=== PATIENT | female | born 1995 | race Caucasian/White ===

== ENCOUNTER → 2023-06-26 | Emergency (ER) | payer SELFPAY ==
[~2023-06-26] MED LIST: ACETAMINOPHEN 500 MG TAB ONE; FAMOTIDINE 20 MG/2 ML VIAL IV ONE; GUAIFENESIN/DM 5 ML UCUP ONE; KETOROLAC 30 MG/ML INJ ONE; NA CHLORIDE 0.9% 1,000 ML ONE; ONDANSETRON 4 MG/2 ML VIAL ONE
--- OUTSIDE RECORDS SUMMARY | 2023-06-26 06:41 | XMS REPORT | Continuity of Care Document ---
Author Name Unknown Address [address] [place] [address] [address] [place] [address] [facility] thconnect Address [address] [facility] [address] [place] [address] Care Team Providers Care Installation Specialist Name Role Phone Unavailable Unavailable Unavailable Payers Payer Name Policy Type Policy Number Effective Date Expirati on Date Source Allergies, Adverse Reactions, Alerts Allergy Name Allergy Type Status Severity Reaction(s) Onset Date Inactive Date Treating Clinician Comments Source No Known Allergie s DA Active U 08-31 00:00: 00 [facility] Results Test Description Test Time Test Comments Results Resul t Comments Source - CTA CHEST FOR PE 2018-09-01 02:07:00 Patient Name: CAROL EDDY Unit No: [id number] EXAMS: CPT CODE: [id number] [place] [id number] Reason: pain, sob EXAM: CT Angiography Chest With Contrast EXAM DATE/TIME: 09/01/2018 1:38 AM CLINICAL HISTORY: 23 years old, female; Pain and signs and symptoms; Dyspnea and shortness of breath; Chest pain; Type not specified; Additional info: Pain, SOB TECHNIQUE: Imaging protocol: Axial computed tomographic angiography images of the chest with intravenous contrast using CT angiography protocol. Coronal and sagittal reformatted images were created and reviewed. 3D rendering: MIP reconstructed images were created and reviewed. Radiation optimization: All CT scans at this facility use at least one of these dose optimization techniques: automated exposure control; mA and/or kV adjustment per patient size (includes targeted exams where dose is matched to clinical indication); or iterative reconstruction. Contrast material: ISOVUE 300; Contrast volume: 80 ml; Contrast route: IV; COMPARISON: CR XR CHEST 1 V 08/31/2018 9:48 PM FINDINGS: Pulmonary arteries: Normal. No pulmonary emboli. Aorta: Normal. No aortic aneurysm. No aortic dissection. Lungs: Bibasilar subsegmental atelectasis is appreciated. Pleural space: Normal. No pneumothorax. No pleural effusion. Heart: The heart is normal in size. Lymph nodes: Unremarkable. No enlarged lymph nodes. Bones/joints: Unremarkable. No acute fracture. Soft tissues: Unremarkable. IMPRESSION: No pulmonary embolus or acute pulmonary pathology. at 0207 Reported and signed by: Jd Felton CC: Ron Tapia DO Technologist: Krunal Moralez RT CT Trscrpt Dt/ (206)CHARITY.VR Orig Print D/T: S: 09/01/2018 (206) CTDI: DLP: Ecru NAME: CAROL EDDY [address] [place] [address] PHYS: [email or web address] - Ron Tapia [address] : 1995 AGE: 23 SEX: F [place], [place] [id number] [place], [place] [address]T NO: [id number] LOC: DKamaljitPER PHONE #: [phone] EXAM DATE: 09/01/2018 STATUS: REG ER FAX #: RAD NO: DC Dt: PAGE 1 Signed Report TROPONIN I [id number] 23:45:00* Test Item Value Reference Range Interpretation Comme nts TROPONIN I RAPID (test code = TROPIRAP) 0.00 NG/ML 0.00-0.08 N Performed by cer tified stitcher set up operator automatic at [facility] - The use of serial sampling and testing protocol is a recommended practice.- An elevated troponin level alone is often not sufficient for diagnosis of myocardial infarction. CBC W/AUTO [id number] 23:43:00* Test Item Value Reference Range Interpretation Comme nts WHITE BLOOD CELL (test code = WBC) 17.61 x10 3/uL 4.80-10.80 H Results called t o and read back by MAGUI CORMIER RN;5114, 08/31/18, D.LAB.AQ. RED BLOOD CELL (test code = RBC) 5.12 x10 6/uL 4.2-5.4 N HEMOGLOBIN (test code = HGB) 15.1 G/DL 12.0-16.0 N HEMATOCRIT (test code = HCT) 44.2 % 37-47 N MEAN CELL VOLUME (test code = MCV) 86.3 FL 81-99 N MEAN CELL HGB (test code = MCH) 29.5 PG 27-31 N MEAN CELL HGB CONCENTRATION (test code = MCHC) 34.2 G/DL 33-37 N RED CELL DISTRIBUTION WIDTH (test code = RDW) 16.0 % 11.5-14.5 H PLATELET COUNT (test code = PLT) 461 x10 3/uL 150-450 H MEAN PLATELET VOLUME (test code = MPV) 9.3 FL 7.4-10.4 N NEUTROPHIL % (test code = NT%) 71.4 % 42-86 N LYMPHOCYTE % (test code = LY%) 22.6 % 24-44 L MONOCYTE % (test code = MO%) 4.8 % 0.0-4.0 H EOSINOPHIL % (test code = EO%) 1.0 % 0.0-2.7 N BASOPHIL % (test code = BA%) 0.2 % 0.0-0.5 N NEUTROPHIL # (test code = NT#) 12.57 x10 3/uL 1.8-7.7 H LYMPHOCYTE # (test code = LY#) 3.98 x10 3/uL 1.0-4.8 N MONOCYTE # (test code = MO#) 0.84 x10 3/uL 0.0-0.8 H EOSINOPHIL # (test code = EO#) 0.18 x10 3/uL 0.0-0.5 N BASOPHIL # (test code = BA#) 0.04 x10 3/uL 0.0-0.2 N UA RFLX MICROSCOPIC [id number] 22:48:00* Test Item Value Reference Range Interpretation Comme nts UA COLOR (test code = COLU) STRAW YELLOW UA APPEARANCE (test code = APPU) CLEAR CLEAR UA GLUCOSE DIPSTICK (test code = DGLUU) NEGATIVE mg/dL NEGATIVE UA BILIRUBIN DIPSTICK (test code = BILU) NEGATIVE NEGATIVE UA KETONE DIPSTICK (test code = KETU) NEGATIVE mg/dL NEGATIVE UA SPECIFIC GRAVITY (test code = SGU) 1.015 1.001-1.035 N UA BLOOD DIPSTICK (test code = PALOMA) NEGATIVE NEGATIVE UA PH DIPSTICK (test code = ALEX) 6.5 5.5-7.0 N UA PROTEIN DIPSTICK (test code = PROU) NEGATIVE mg/dL NEGATIVE UA UROBILINOGEN DIPSTICK (test code = URO) NORMAL mg/dL NORMAL UA NITRITE DIPSTICK (test code = FEDERICO) NEGATIVE NEGATIVE UA LEUKOCYTE ESTERASE DIPSTICK (test code = LEUU) NEGATIVE NEGATIVE UA COMMENT (test code = COMU) VOLUME 10-12 ML URINE SPECIMEN DESCRIPTION (test code = UASPEC) Clean Catch UA WBC (test code = WBCU) < 10 #/hpf <10 UA SQUAMOUS CELLS (test code = SQU) 0 - 20 #/lpf <100 UA CULTURE NEEDED? (test code = UACULT) Criteria not met UA RFLX MICROSCOPIC [id number] 22:47:00* Test Item Value Reference Range Interpretation Comme nts UA COLOR (test code = COLU) STRAW YELLOW UA APPEARANCE (test code = APPU) CLEAR CLEAR UA GLUCOSE DIPSTICK (test code = DGLUU) NEGATIVE mg/dL NEGATIVE UA BILIRUBIN DIPSTICK (test code = BILU) NEGATIVE NEGATIVE UA KETONE DIPSTICK (test cod e = KETU) NEGATIVE mg/dL NEGATIVE UA SPECIFIC GRAVITY (test code = SGU) 1.015 1.001-1.035 N UA BLOOD DIPSTICK (test code = PALOMA) NEGATIVE NEGATIVE UA PH DIPSTICK (test code = ALEX) 6.5 5.5-7.0 N UA PROTEIN DIPSTICK (test code = PROU) NEGATIVE mg/dL NEGATIVE UA UROBILINOGEN DIPSTICK (test code = URO) NORMAL mg/dL NORMAL UA NITRITE DIPSTICK (test code = FEDERICO) NEGATIVE NEGATIVE UA LEUKOCYTE ESTERASE DIPSTICK (test code = LEUU) NEGATIVE NEGATIVE UA COMMENT (test code = COMU) VOLUME 10-12 ML URINE SPECIMEN DESCRIPTION (test code = UASPEC) Clean Catch UA WBC (test code = WBCU) #/hpf <10 UA SQUAMOUS CELLS (test code = SQU) #/lpf <100 UA CULTURE NEEDED? (test cod e = UACULT) UR HCG [id number] 22:47:00* Test Item Value Reference Range Interpretation Comme nts UR HCG QUAL (test code = HCGQLU) NEGATIVE NEGATIVE False negatives may occur when levels of hCGare below 20 mIU/ml. When is still suspected, a new specimenshould be obtained after 48 hours and re-tested.If waiting 48 hours is not medically advisable,the test result should be confirmed using aquantitative hCG assay. DRUG OF ABUSE SCREEN [id number] 22:47:00* Test Item Value Reference Range Interpretation Comments UR COCAINE (test code = COCAU) NEGATIVE NEGATIVE UR MDMA (test code = MDMAQLU) NEGATIVE NEGATIVE UR CANNABINOIDS (test code = CANU) NEGATIVE NEGATIVE UR AMPHETAMINE (test code = AMPHU) NEGATIVE NEGATIVE UR BARBITURATE QUAL (test code = BARBQLU) NEGATIVE NEGATIVE UR BENZODIAZEPINE (test code = BENZU) NEGATIVE NEGATIVE UR OPIATES QUAL (test code = OPIAQLU) POSITIVE NEGATIVE A If confirmatory testing required, contact laboratory. UR PHENCYCLIDINE (PCP) (test code = PHENCU) NEGATIVE NEGATIVE Urine Drug Abuse Screen provides preliminary results thatmay be confirmed by alternate methods (i.e., GC/MS) at [facility]. Results of screen may not be usedin criminal justice, job performance or professionalcredential review, or custody issues. Negative [place] Level ng/ml ----- Cocaine 300 Methamphetamine (Ecstacy) 500 Cannabinoids (THC) 50 Amphetamine 1000 Barbiturates 200 Benzodiazepines 200 Opiates 300 Phencyclidine (PCP) 25 - XR CHEST 1 [id number] 22:39:00Patient Name: CAROL EDDY Unit No: [id number] EXAMS: CPT CODE: [id number] XR CHEST 1 V 63789 Reason: pain EXAM: XR Chest, 1 View EXAM DATE/TIME: 08/31/2018 10:01 PM CLINICAL HISTORY: 23 years old, female; Pain and signs and symptoms; Shortness of breath; Chest pain; Type not specified TECHNIQUE:Imaging protocol: XR of the chest, 1 view. COMPARISON: No relevant prior studies available. FINDINGS: Lungs: The lungs are clear. Pleural space: Unremarkable. No pleural effusion. No pneumothorax. Heart/Mediastinum: Unremarkable. No cardiomegaly. Bones/joints: Unremarkable. IMPRESSION: Normal chestradiograph at 2239 Reported and signed by: Jd Felton CC: Ron Tapia DO Technologist: Krunal Moralez RT CT Trscrpt Dt/ (2238)CHARITY.VR Orig Print D/T: S: 08/31/2018 (2238) Ecru NAME: CAROL GUERRIER [address] [place] [address] PHYS: MOLLY. - Ron Tapia [address] : 1995 AGE: 23 SEX: F [place], [place] [address] LOC: D.PER PHONE #: [phone] EXAM DATE: 08/31/2018 STATUS: REG ER FAX #: RAD NO: DC Dt: PAGE 1 Signed Report Notes Date/Time Note Provider Source 2018-08-31 21:51:00 [id number]/Fb [id number]:5 [id number] [place], [place] PATIENT NAME: CAROL EDDY ADMIT DATE: 08/31/18ACCOUNT NO: [id number] ROOM NO: AGE: 23 REPORT TYPE: ELECTROCARDIOGRAM SEX: F : [birth year]ADMITTING PHYSICIAN: ATTENDING PHYSICIAN:Ron Tapia DO Order:[id number] Reason : CP/SOB Test Date/Time Stamp:SatAug 31 2018 21:51:42Blood Pressure : / mmHGVent. Rate : 058 BPM Atrial Rate : 058 BPM P-R Int : 142 ms QRS Dur : 092 ms QT Int : 422 ms P-R-T Axes : 013 038 024 degrees QTc Int : 414 ms Sinus bradycardiaOtherwise normal ECGNo previous ECGs availableConfirmed by RON TAPIA DO ([id number]), primer expeditor and drier OUMAR MEDEROS ([id number]) on10/22/2018 12:17:02 PM Referred By: Self Referred Confirmed by:RON TAPIA DO at 1218 PATIENT NAME: CAROL EDDY .[id number] AVAvailable for patient [id number]:18:15 [facility] 2018-08-31 21:09:00 [id number] [id number]/2NrZ6Hp5748-37-00N33:0 9:00 [facility] ([facility] [place] [facility] PROVIDER REPORTREPORT#:[id number] REPORT STATUS: SignedDATE:08/31/18 TIME: 2108 PATIENT: CAROL EDDY UNIT #: [id number]#: [id number] ROOM/BED:AGE: 23 SEX: F PCP PHYS: Self ReferredSERVICE AUTHOR: Ron Tapia DO * ALL edits or amendments must be made on the electronic/computer document * HPI-Dyspnea/Wheezing GeneralConfirmed Patient YesPatient Type New patientInitial Greet Date/Time 08/31/182108 PresentationChief Complaint Shortness of breathHx Obtained From Patient)( Sudden in Onset? YesOnset Occurred TodaySymptom Duration ConstantProgression since Onset ConstantCaused by No trauma by historyLocation NoneSeverity: Onset MildSeverity: Current MildAssociated withReports: Chest pain. Denies: Anxiety, Calf pain, Cough, Diaphoresis, Fever, Hemoptysis, Leg pain, Leg swelling, Loss of consciousness, Nasal congestion, Nausea, Numbness, perioral, Numbness, hands, Numbness, feet, Sore throat, Vomiting, Wheeze. Associated Other Pt denies other symptomsExacerbated by NothingRelieved by Nothing Free Text HPI NotesFree Text HPI [id number] presents to the ED c/o of SOB. Onset today pt was sitting outside when she started to get a chest pain. Pt states that she is having difficulty breathing. Pt denies sxs of fever, chills, nausea and vomiting. Portions of this section were scribed by Guzman Herrera on 08/31/18 at 2328 Review of Systems ROS StatementsAll systems rev neg except as marked. Focused Review of SystemsConstitutionalDenies: Chills, Fever. Ears/Nose/ThroatDenies: Nasal congestion, Sore throat. RespiratoryReports: Shortness of breath. Denies: Cough, non-productive, Cough, productive. CardiovascularReports: Chest pain. Denies: Palpitations. MusculoskeletalDenies: Back pain, Extremity pain. SkinDenies: Abrasion, Abscess, Itching. Additional Review of SystemsGIDenies: Abdominal pain, Nausea, Vomiting. NeurologicDenies: Focal weakness, Generalized weakness, Headache. Portions of this section were scribed by Guzman Herrera on 08/31/18 at 2114 Past Medical History - AdultStated Complaint SOBAllergiesCoded Allergies:No Known Allergies (08/31/18) Home MedicationsReported MedicationsNo Known Home Medications Review of Nursing Notes Rev avail, and agreeSmoking status for patients 13 years old or older: Unknown,if ever smoked Portions of this section were scribed by Guzman Herrera on 08/31/18 at 2144 Physical Exam Vital SignsVital SignsFirst Documented: Result Date Time Pulse Ox 100 09/01 2111 B/P 157/99 09/01 2111 B/P Mean 118 09/01 2111 O2 Delivery Room air 09/01 2111 Temp 37.2 09/01 2111 Pulse 83 09/01 2111 Resp 19 09/01 2111 Last Documented: Result Date Time Pulse Ox 98 09/01 201 B/P 143/102 09/01 201 B/P Mean 115 09/01 201 Pulse 62 09/01 201 Resp 16 09/01 201 O2 Delivery Room air 09/01 2111 Temp 37.2 09/01 2111 Review of Vital Signs Reviewed Focused PEGeneral/Const General/Const Awake, AlertEars/Nose/Throat Ears/Nose/Throat Airway patent, Mucous membranes moist, Pharynx NLMS Neck Neck Supple, No meningismus, Full range of motionResp/Chest Respiratory/Chest No rales, No rhonchi, No wheezing Text/Dict NotestachypneaCardiovascular Cardiovascular No gallop, No murmurs Heart Rate/Rhythm Tachycardia. Abdomen/GI Abdomen/GI Soft, Non-tender, No guarding, No reboundSkin Skin Warm, Dry, IntactNeurologic Neurologic Oriented X3, Speech NL, No motor deficits, No sensory deficits Additional PEMS Head Head Atraumatic, NormocephalicEyes Eyes PERRL, EOMI, No nystagmus Portions of this section were scribed by Guzman Herrera on 08/31/18 at 2328 Interpretation Diagnostics Lab Results InterpretationResultsLaboratory Tests 08/31/18 2336:[Embedded Image Not Available]Laboratory Tests: 08/31 08/31 08/31 2336 2335 2225 Chemistry Sodium (133 - 145 MMOL/L) 140 Potassium (3.6 - 5.2 MMOL/L) 4.2 Chloride (100 - 108 MMOL/L) 102 Carbon Dioxide (22 - 32 MMOL/L) 28 BUN (6 - 20 MG/DL) 12 Creatinine (0.60 - 1.00 MG/DL) 0.98 Estimated GFR (MDRD) (71 - 165) 72 Glucose (65 - 99 MG/DL) 109 H Calcium (8.7 - 10.5 MG/DL) 9.5 Total Bilirubin (0.0 - 1.0 MG/DL) 0.2 AST (15 - 37 Units/L) 27 ALT (30 - 65 Units/L) 78 H Alkaline Phosphatase (50 - 136 Units/L) 105 Rapid Troponin I (0.00 - 0.08 NG/ML) 0.00 Total Protein (6.4 - 8.2 G/DL) 7.7 Albumin (3.4 - 5.0 G/DL) 4.0 Globulin (1.5 - 3.8 G/DL) 3.7 Albumin/Globulin Ratio (1.1 - 2.2) 1.1 Hematology WBC (4.80 - 10.80 x10 3/uL) 17.61 H RBC (4.2 - 5.4 x10 6/uL) 5.12 Hgb (12.0 - 16.0 G/DL) 15.1 Hct (37 - 47 %) 44.2 MCV (81 - 99 FL) 86.3 MCH (27 - 31 PG) 29.5 MCHC (33 - 37 G/DL) 34.2 RDW Coeff of Mando (11.5 - 14.5 %) 16.0 H Plt Count (150 - 450 x10 3/uL) 461 H MPV (7.4 - 10.4 FL) 9.3 Neut % (Auto) (42 - 86 %) 71.4 Lymph % (Auto) (24 - 44 %) 22.6 L [place] % (Auto) (0.0 - 4.0 %) 4.8 H Eos % (Auto) (0.0 - 2.7 %) 1.0 Baso % (Auto) (0.0 - 0.5 %) 0.2 Eos # (Auto) (0.0 - 0.5 x10 3/uL) 0.18 Baso # (Auto) (0.0 - 0.2 x10 3/uL) 0.04 Absolute Neuts (auto) (1.8 - 7.7 x10 3/uL) 12.57 H Absolute Lymphs (auto) (1.0 - 4.8 x10 3/uL) 3.98 Absolute Monos (auto) (0.0 - 0.8 x10 3/uL) 0.84 H Urines Urine HCG, Qual (NEGATIVE) NEGATIVE 08/31 2224 Toxicology Urine Opiates Screen (NEGATIVE) POSITIVE H Ur Barbiturates Screen (NEGATIVE) NEGATIVE Ur Phencyclidine Scrn (NEGATIVE) NEGATIVE Ur Amphetamine Screen (NEGATIVE) NEGATIVE MDMA (NEGATIVE) NEGATIVE U Benzodiazepines Scrn (NEGATIVE) NEGATIVE Urine Cocaine Screen (NEGATIVE) NEGATIVE U Cannabinoids Screen (NEGATIVE) NEGATIVE Urines Ur Spec Description Clean Catch Urine Color (YELLOW) STRAW Urine Appearance (CLEAR) CLEAR Urine pH (5.5 - 7.0) 6.5 Ur Specific [place] (1.001 - 1.035) 1.015 Urine Protein (NEGATIVE mg/dL) NEGATIVE Urine Glucose (UA) (NEGATIVE mg/dL) NEGATIVE Urine Ketones (NEGATIVE mg/dL) NEGATIVE Urine Blood (NEGATIVE) NEGATIVE Urine Nitrite (NEGATIVE) NEGATIVE Urine Bilirubin (NEGATIVE) NEGATIVE Urine Urobilinogen (NORMAL mg/dL) NORMAL Ur Leukocyte Esterase (NEGATIVE) NEGATIVE Urine WBC (<10 #/hpf) < 10 Ur Squamous Epith Cells (<100 #/lpf) 0 - 20 Urine Culture Screen Criteria not met Urine Comment VOLUME 10-12 ML Recent Impressions:RADIOLOGY - XR CHEST 1 V 08/31 2199 Report Impression - Status: SIGNED Entered: 08/31/20182238 IMPRESSION: Normal chest radiographImpression By: Cira Morillo M.D. vRadCAT SCAN - CTA CHEST FOR PE 09/01 0125 Report Impression - Status: SIGNED Entered: 09/01/2018 020 IMPRESSION: No pulmonary embolus or acute pulmonary pathology.Impression By: Cira Morillo M.D. vRad Lab StatementLaboratory studies reviewed and considered in the medical decision-making. Point of Care TestingPulse Oximetry Pulse Ox % 100 On: Room air Interpretation Interpreted by me, Pulse oximetry normal Time 2111 ECG #1 InterpretationECG Documented in MUSE YesDate 08/31/18Time 2150Interpreted by ED physicianNL ECG Interpretation No acute ischemic changes, No STEMI, Normal QRS, Normal STwaves, Normal T waves, Normal axisRate 58Rhythm Bradycardia (sinus bradycardia) Portions of this section were scribed by Guzman Herrera on 08/31/18 at 2328 Re-Evaluation MDM )( Re-Evaluation/Progress #1Text/Dict NotePt reports sxs of chest tightness and pain. Pt is continously vomiting and feelsnauseous. Time of Re-Eval 2143)( Re-Eval Status Unchanged Re-Evaluation/Progress #2Text/Dict NotePt states that she is still having some chest pain. Talked to pt about completing a CT scan. Time of Eval 2327Re-Eval Status Unchanged ED CourseMedication(s) OrderedMedication(s) Ordered:Autonomic Drugs Sig/Winston Start time Last Medication Dose Route Stop Time Status Admin Multi-Ingredient GI 40 ML X1ED STA 08/31 2250 DC 08/31 Drug PO 08/31 2250 225 Central Nervous System Agents Sig/Winston Start time Last Medication Dose Route Stop Time Status Admin Hydromorphone HCl 1 MG X1ED STA 09/01 0203 DC 09/01 IV 05/27 0204 0205 Morphine Sulfate 4 MG X1ED STA 08/31 2328 DC 08/31 IV 08/31 2330 2340 Morphine Sulfate 4 MG X1ED STA 08/31 2144 DC 08/31 IM 08/31 Ibuprofen 800 MG X1ED STA 08/31 2136 CAN PO 08/31 2137 Lorazepam 1 MG X1ED STA 08/31 2108 DC 08/31 PO 08/31 Diagnostic Agents Sig/Winston Start time Last Medication Dose Route Stop Time Status Admin Iopamidol 0 .STK-MED ONE 09/01 0113 DC 09/01 IV 0118 Gastrointestinal Drugs Sig/Winston Start time Last Medication Dose Route Stop Time Status Admin Ondansetron HCl 4 MG X1ED STA 08/31 2328 DC 08/31 IV 08/31 2329 2340 Ondansetron Base 4 MG X1ED STA 08/31 2108 DC 08/31 PO 08/31 Portions of this section were scribed by Guzman Herrera on 08/31/18 at 2328 Patient Discharge Departure Vital Signs/ConditionVital SignsFirst Documented: Result Date Time Pulse Ox 100 09/01 2111 B/P 157/99 09/01 2111 B/P Mean 118 09/01 2111 O2 Delivery Room air 09/01 2111 Temp 37.2 09/01 2111 Pulse 83 09/01 2111 Resp 19 09/01 2111 Last Documented: Result Date Time Pulse Ox 98 09/01 020 B/P 143/102 09/01 201 B/P Mean 115 09/01 201 Pulse 62 09/012 Resp 16 09/01 020 O2 Delivery Room air 09/01 2111 Temp 37.2 09/01 2111 All vital signs available at the time of this entry have been reviewed. Condition Improved, Stable Clinical ImpressionClinical ImpressionPrimary Impression: Chest painSecondary Impressions: Anxiety reactionRuled Out Impressions: Acute coronary syndrome, Pulmonary embolism Disposition DecisionDischarge )( Discharged to Home Yes )( Time 0216 )( Date 09/01/18 Discharge/Care PlanCounseled Regarding Diagnosis, Lab results, Imaging studies, Need for follow-up,When to return to ED Supervising Physician Note Scribe StatementGuzman Herrera, 08/31/182116, scribing for and in the presence of [Dr. Tapia].Signed By: Guzman Herrera, 08/31/187 Provider Scribed StatementI personally performed the services described in this documentation and reviewedthe documentation that was dictated to the scribe(s) in my presence, and it accurately records my words and actions. Ron Tapia, 09/01/18 Portions of this section were scribed by Guzman Herrera on 08/31/18 at 2328 at 0338RPT #:[id number] OF REPORTEDEmerchi st. [facility] [id number]:09:00D.[id number] ilable for patient [id number]:39:13 [facility]
[2023-06-26 07:23] LABS: Absolute Eosinophils 0.4 K/uL (0-0.5); Absolute Lymphocytes (CBC) 2.1 K/uL (0.7-4.9); Absolute Monocytes 0.6 K/uL (0.1-1.3); Absolute Neutrophil 8.5 K/uL (1.8-8.0); Basophils % 0.4 % (0-1.3); Eosinophils % 3.4 % (0-4.4); Hematocrit 44.7 % (36.0-45.0); Hemoglobin 14.9 g/dL (12.0-15.0); Lymphocytes % 17.8 % (15.3-44.8); MCH 30.2 pg (27.0-35.0); MCHC 33.4 g/dL (32.0-36.0); MCV 90.4 fL (80-100); MPV 8.1 fL (7.6-11.3); Monocytes % 5.2 % (3.3-12.3); Neutrophils % 73.2 % (41.7-73.7); Platelets 343 thou/uL (152-406); RBC Red Blood Cell Count 4.94 M/uL (3.86-4.86); Red Cell Distribution Width 14.2 % (12.1-15.2)
[2023-06-26 07:28] LABS: Albumin 3.1 g/dL (3.4-5.0); Albumin/Globulin Ratio 0.7 (1.1-1.8); Anion Gap 10.1 mEq/L (5.0-15.0); Bilirubin Total 0.6 mg/dL (0.2-1.0); Globulin 4.4 g/dL (2.3-3.5); Potassium 3.1 mEq/L (3.5-5.1); Protein, Total 7.5 g/dL (6.4-8.2)
[2023-06-26 07:33] LABS: SARS-CoV-2 Antigen CONTROL BLUE LINE VIS/BG OK; SARS-CoV-2 Antigen Rapid Res Negative (Negative)
--- NOTE | 2023-06-26 08:04 | EDPHYS ---
Physician Documentation [facility] Name: Susan Solis Age: 28 yrs Sex: Female : 1995 Arrival Date: 06/26/2023 Time: 06:37 Bed 15 Private MD: ED Physician Olvin Pope HPI: 06/25 06:43 This 28 yrs old Female presents to ER via Unassigned with complaints of sp4 General complaint . 06:50 28-year-old female with no significant past medical history presented with acute onset sp4 of fever, chest pain, headache, feeling unwell, trouble breathing. Started 4 days ago. Yesterday patient total, Motrin and Aleve at home but did not have any relief. 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 - Social history:: Smoking status: Patient denies any tobacco usage or history of. Patient/guardian denies using alcohol. - Family history:: not pertinent. ROS: 06:50 Constitutional: Positive fever, positive chills, positive chest pain, positive for sp4 headache, positive shortness of breath Eyes: Negative for injury, pain, redness, and discharge, ENT: Negative for injury, pain, and discharge, Neck: Negative for injury, pain, and swelling, 06:50 All other systems are negative, Exam: 06:50 Constitutional: This is a well developed, well nourished patient who is awake, alert, sp4 and in no acute distress. Head/Face: Normocephalic, atraumatic. Eyes: Pupils equal round and reactive to light, extra-ocular motions intact. Lids and lashes normal. Conjunctiva and sclera are not injected. Cornea within normal limits. Periorbital areas with no swelling, redness, or edema. ENT: Nares patent. No nasal discharge, no septal abnormalities noted. Tympanic membranes are normal and external auditory canals are clear. Oropharynx with no redness, swelling, or masses, exudates, or evidence of obstruction, uvula midline. Mucous membranes moist. Neck: Trachea midline, no thyromegaly or masses palpated, and no cervical lymphadenopathy. Supple, full range of motion without nuchal rigidity, or vertebral point tenderness. Chest/axilla: Normal chest wall appearance and motion. Nontender with no deformity. No lesions are appreciated. Cardiovascular: Regular rate and rhythm with a normal S1 and S2. No gallops, murmurs, or rubs. Normal PMI, no JVD. No pulse deficits. Respiratory: Lungs have equal breath sounds bilaterally, clear to auscultation and percussion. No rales, rhonchi or wheezes noted. No increased work of breathing, no retractions or nasal flaring. Abdomen/GI: Soft, with normal bowel sounds. No distension or tympany. No guarding or rebound. No evidence of tenderness throughout. Back: No spinal tenderness. No costovertebral tenderness. Skin: Warm, dry with normal turgor. Normal color with no rashes, no lesions, and no evidence of cellulitis. MS/ Extremity: Pulses equal, no cyanosis. Neurovascular intact. Full, normal range of motion. Neuro: Awake and alert, GCS 15, oriented to person, place, time, and situation. Cranial nerves II-XII grossly intact. Motor strength 5/5 in all extremities. Sensory grossly intact. Psych: Awake, alert, with orientation to person, place and time. Behavior, mood, and affect are within normal limits Vital Signs: 07:02 BP 113 / 73; Pulse 86; Resp 26; Temp 98(O); Pulse Ox 97% on R/A; Weight 88.9 kg; Height tm6 5 ft. 4 in. ; Pain 4/10; 07:22 BP 110 / 68; Pulse 70; Resp 18; Pulse Ox 96% on R/A; ld1 07:22 Pain 8/10; ld1 08:44 BP 109 / 73; Pulse 72; Resp 18; Pulse Ox 100% on R/A; ld1 07:02 Body Mass Index 33.64 (88.90 kg, 162.56 cm) tm6 07:02 Pain Scale: Adult tm6 07:22 Pain Scale: Adult ld1 MDM: 06:44 Patient medically screened. sp4 07:09 ED course: 28-year-old female with probable viral syndrome and URI presentation. sp3 Patient signed out to me by nighttime physician. Full workup is pending including lab work, swabs and chest x-ray. Disposition pending workup and patient course.. 08:02 Data reviewed: vital signs, nurses notes, lab test result(s), radiologic studies. ED sp3 course: Patient is feeling better. Chest x-ray is negative and labs and swabs are also negative. At this time she likely has bronchitis versus viral syndrome. Given the extent of her symptoms, we will COVID and prophylactically treat with Zithromax and I will discharge her on Tessalon Perles as well. Follow-up PCP as needed.. 06/25 06:49 Order name: SARS RAPID; Complete Time: 08:01 sp4 06/25 06:49 Order name: Influenza Screen (a \T\ B); Complete Time: 08:01 sp4 06/25 06:49 Order name: CBC with Diff; Complete Time: 08:01 sp4 06/25 06:49 Order name: CMP; Complete Time: 08:01 sp4 06/25 06:50 Order name: Urinalysis W/Microscopic sp4 06/25 06:50 Order name: Test, Serum; Complete Time: 08:01 sp4 06/25 07:08 Order name: CXR XRAY; Complete Time: 08:09 sp3 06/25 06:50 Order name: IV Saline Lock; Complete Time: 07:02 sp4 06/25 06:50 Order name: Labs collected and sent; Complete Time: 07:02 sp4 Administered Medications: 07:21 Drug: NS 0.9% IV 1000 ml IV at 1 bolus Per protocol; 1000 mL bolus Route: IV; Rate: 1 ld1 bolus; Site: right antecubital; 07:21 Drug: Famotidine IVP 20 mg IVP once; dilute with 10 mL 0.9% NaCl; give over 2 minutes ld1 Route: IVP; Site: right antecubital; 07:21 Drug: Ondansetron IVP 4 mg IVP once; over 2 minutes Route: IVP; Site: right antecubital;ld1 07:21 Drug: Acetaminophen PO 1000 mg PO once Route: PO; ld1 07:21 Drug: Dextromethorphan-Guaifenesin PO Liquid 10 mg-100 mg/5 mL 10 ml PO once Route: PO; ld1 07:22 Drug: TORadol - Ketorolac IVP 30 mg IVP once Route: IVP; Site: right antecubital; ld1 Disposition Summary: 06/26/23 08:03 Discharge Ordered Notes: Location: Home sp3 Condition: Stable sp3 Diagnosis - Bronchitis, upper respiratory infection sp3 Followup: sp3 - With: Private Physician - When: Upon discharge from the Emergency Department - Reason: Continuance of care Discharge Instructions: - Discharge Summary Sheet sp3 - Upper Respiratory Infection, Adult sp3 Forms: - Medication Reconciliation Form sp3 - Thank You Letter sp3 - Antibiotic Education sp3 - Prescription Opioid Use sp3 - Patient Portal Instructions sp3 - Leadership Thank You Letter sp3 Prescriptions: - Tessalon Perles 100 mg Oral Capsule - take 1 capsule ORAL route every 8 hours As needed; 15 capsule; Refills: 0, sp3 Product Selection Permitted - Zithromax Z-Bebeto 250 mg Oral Tablet - take 1 tablet ORAL route as directed for 5 days Day 1 - take two (2) tablets sp3 one time. Day 2, 3, 4 , 5 take one (1) tablet once daily.; 6 tablet; Refills: 0, Product Selection Permitted Signatures: Dispatcher [employer] EDSushma Hammond RN RN ld1 Olvin Pope MD MD sp3 Blair Fowler MD MD sp4 Surinder Doherty RN RN tm6
--- NOTE | 2023-06-26 08:04 | ER ---
Nurse's Notes [facility] Name: Susan Solis Age: 28 yrs Sex: Female : 1995 Arrival Date: 06/26/2023 Time: 06:37 Bed 15 Private MD: Diagnosis: Bronchitis, upper respiratory infection Presentation: 06/25 07:02 Chief complaint: Patient states: started to feel unwell on Saturday. Sore throat, fever tm6 104F, body aches, chest pain, headache, nausea, vomiting, and shortness of breath. Coronavirus screen: Vaccine status: Patient reports being unvaccinated. Ebola Screen: Patient negative for fever greater than or equal to 101.5 degrees Fahrenheit, and additional compatible Ebola Virus Disease symptoms Patient denies exposure to infectious person. Patient denies travel to an Ebola-affected area in the 21 days before illness onset. No symptoms or risks identified at this time. Initial Sepsis Screen: Does the patient meet any 2 criteria? RR > 20 per min. Does the patient have a suspected source of infection? No. Patient's initial sepsis screen is negative. Risk Assessment: Do you want to hurt yourself or someone else? Patient reports no desire to harm self or others. Onset of symptoms was June 23, 2023. 07:02 Method Of Arrival: Ambulatory tm6 07:02 Acuity: FREDERICK 3 tm6 Triage Assessment: 07:04 General: Appears distressed, uncomfortable, Behavior is cooperative. Pain: Complains of tm6 pain in body aches Pain began 2-3 days ago. Pain: Pain. EENT: Reports pain in throat. 07:12 Neuro: Level of Consciousness is awake, alert, obeys commands, Oriented to person, tm6 place, time, situation. Cardiovascular: Capillary refill < 3 seconds Patient's skin is warm and dry. Respiratory: Reports shortness of breath at rest cough that is non-productive. GI: Abdomen is flat, non-distended. GI: Reports nausea, vomiting. : No signs and/or symptoms were reported regarding the genitourinary system. Derm: No signs and/or symptoms reported regarding the dermatologic system. Musculoskeletal: Reports body aches. 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 - Social history:: Smoking status: Patient denies any tobacco usage or history of. Patient/guardian denies using alcohol. - Family history:: not pertinent. Screenin:13 [facility] ED Fall Risk Assessment (Adult) History of falling in the last 3 months, tm6 including since admission No falls in past 3 months (0 pts) Confusion or Disorientation No (0 pts) Intoxicated or Sedated No (0 pts) Impaired Gait No (0 pts) Mobility Assist Device Used No (0 pt) Altered Elimination No (0 pt) Score/Fall Risk Level 0 - 2 = Low Risk Oriented to surroundings, Maintained a safe environment. Abuse screen: Denies threats or abuse. Denies injuries from another. Nutritional screening: No deficits noted. Tuberculosis screening: No symptoms or risk factors identified. Assessment: 07:22 General: Appears in no apparent distress. comfortable, Behavior is calm, cooperative, ld1 appropriate for age. Pain: Denies pain. Neuro: Level of Consciousness is awake, alert, obeys commands, Oriented to person, place, time, situation. Cardiovascular: Capillary refill < 3 seconds Patient's skin is warm and dry. Respiratory: Airway is patent Respiratory effort is even, unlabored. GI: Abdomen is round non-distended. : No signs and/or symptoms were reported regarding the genitourinary system. EENT: No signs and/or symptoms were reported regarding the EENT system. Derm: No signs and/or symptoms reported regarding the dermatologic system. Musculoskeletal: No signs and/or symptoms reported regarding the musculoskeletal system. 07:23 Reassessment: Pt c/o headache and cough. ld1 08:44 Reassessment: Patient appears in no apparent distress at this time. No changes from ld1 previously documented assessment. Patient and/or family updated on plan of care and expected duration. Pain level reassessed. Patient states symptoms have improved. Vital Signs: 07:02 BP 113 / 73; Pulse 86; Resp 26; Temp 98(O); Pulse Ox 97% on R/A; Weight 88.9 kg; Height tm6 5 ft. 4 in. ; Pain 4/10; 07:22 BP 110 / 68; Pulse 70; Resp 18; Pulse Ox 96% on R/A; ld1 07:22 Pain 8/10; ld1 08:44 BP 109 / 73; Pulse 72; Resp 18; Pulse Ox 100% on R/A; ld1 07:02 Body Mass Index 33.64 (88.90 kg, 162.56 cm) tm6 07:02 Pain Scale: Adult tm6 07:22 Pain Scale: Adult ld1 ED Course: 06:40 Patient arrived in ED. kmf 06:43 Blair Fowler MD is Attending Physician. sp4 06:47 Client placed on continuous cardiac and pulse oximetry monitoring. NIBP monitoring kmf applied. environmental coordinator on. 06:59 Surinder Doherty, YOLI is Primary Nurse. tm6 06:59 Inserted saline lock: 20 gauge in right antecubital area, using aseptic technique. oe Blood collected. 06:59 Initial lab(s) drawn, by de, sent to lab. oe 07:03 Attending Physician role handed off by Blair Fowler MD sp3 07:03 Olvin Pope MD is Attending Physician. sp3 07:04 Triage completed. tm6 07:06 CMP Sent. oe 07:06 CBC with Diff Sent. oe 07:06 Test, Serum Sent. oe 07:06 SARS RAPID Sent. oe 07:06 Influenza Screen (a \T\ B) Sent. oe 07:13 Patient has correct armband on for positive identification. Placed in gown. Bed in low tm6 position. Call light in reach. Side rails up X2. Provided Education on: plan of care. Pulse ox on. NIBP on. Door closed. Noise minimized. Warm blanket given. 07:22 Influenza Screen (a \T\ B) Sent. ld1 07:22 SARS RAPID Sent. ld1 07:22 CBC with Diff Sent. ld1 07:22 CMP Sent. ld1 07:23 No provider procedures requiring assistance completed. ld1 07:42 CXR XRAY In Process Unspecified. EDMS 08:44 Arm band placed on right wrist. ld1 08:44 IV discontinued, intact, bleeding controlled, No redness/swelling at site. ld1 Administered Medications: 07:21 Drug: NS 0.9% IV 1000 ml IV at 1 bolus Per protocol; 1000 mL bolus Route: IV; Rate: 1 ld1 bolus; Site: right antecubital; 07:21 Drug: Famotidine IVP 20 mg IVP once; dilute with 10 mL 0.9% NaCl; give over 2 minutes ld1 Route: IVP; Site: right antecubital; 07:21 Drug: Ondansetron IVP 4 mg IVP once; over 2 minutes Route: IVP; Site: right antecubital;ld1 07:21 Drug: Acetaminophen PO 1000 mg PO once Route: PO; ld1 07:21 Drug: Dextromethorphan-Guaifenesin PO Liquid 10 mg-100 mg/5 mL 10 ml PO once Route: PO; ld1 07:22 Drug: TORadol - Ketorolac IVP 30 mg IVP once Route: IVP; Site: right antecubital; ld1 Medication: 07:13 VIS not applicable for this client. tm6 Outcome: 08:03 Discharge ordered by . sp3 08:43 Discharged to home ambulatory, ld1 08:43 Condition: stable 08:43 Discharge instructions given to patient, Instructed on discharge instructions, follow up and referral plans. medication usage, Demonstrated understanding of instructions, follow-up care, medications, Prescriptions given X 2, 08:44 Patient left the ED. ld1 Signatures: Dispatcher [employer] EDMS Kamari Agustin Lauren, RN RN ld1 Olvin Pope MD MD sp3 Blair Fowler MD MD sp4 Jessica Torres [facility] Surinder Doherty RN RN tm6 Corrections: (The following items were deleted from the chart) 07:06 07:05 Inserted saline lock: 20 gauge in right antecubital area, using aseptic oe technique. Blood collected. oe
--- NOTE | 2023-06-26 08:08 | RAD REPORT ---
[facility] 7[facility]40 [facility] CLINICAL HISTORY: COUGH COMPARISON: No comparisonsNo comparisons TECHNIQUE: Portable AP view of the chest. FINDINGS: The lungs are clear. No pneumothorax or effusion. The cardiomediastinal contours are unre markable. IMPRESSION: No acute cardiopulmonary process.
[2023-06-26 09:13] VITALS: BP 109/73; TEMP 98; O2SAT 100
== END ==
LOC: ER 06:37
DX: J40 Bronchitis, not specified as acute or chronic (principal); Z11.52 Encounter for screening for COVID-19
CPT/HCPCS: 36415; 71045; 80053; 84703; 85025; 87804; 87811; J2405; J7030